=== PATIENT | male | born 1980 | race Caucasian/White ===

== ENCOUNTER 2017-11-07 18:35 | Emergency (ER) | payer BC ==
[2017-11-07] MEDS ORDERED: Lidocaine/EPINEPHrine/Tetracaine Soln 1 ML TOP ONE (18:50)
--- NOTE | 2017-11-07 19:08 | EDM.PDOC ---
ED HPI GENERAL MEDICAL PROBLEM - General Chief Complaint: Laceration Stated Complaint: HIT HEAD Time Seen by Provider: 11/07/17 18:50 Source of Information: Reports: Patient History Limitations: Reports: No Limitations - History of Present Illness INITIAL COMMENTS - FREE TEXT/NARRATIVE: HISTORY AND PHYSICAL: History of present illness: Patient is a 37-year-old male who presents to the emergency room today with complaints of a laceration to the top of his head after he states he was hanging some cabinets when they came loose, hitting him on the top of the head. He does have approximately 3 cm laceration to the top of the head in the hairline. He denies any loss of consciousness, change in vision, nausea, vomiting. Negative for any fever, chills, abdominal pain. He denies any neck pain, extremity pain. Does have some musculoskeletal skeletal tenderness to the left trapezius muscle. Review of systems: As per history of present illness and below otherwise all systems reviewed and negative. Past medical history: As per history of present illness and as reviewed below otherwise noncontributory. Surgical history: As per history of present illness and as reviewed below otherwise noncontributory. Social history: No reported history of drug or alcohol abuse. Family history: As per history of present illness and as reviewed below otherwise noncontributory. Physical exam: HEENT: 3 cm semi-superficial laceration to top of scalp (in hairline), non- gaping normocephalic, pupils reactive, negative for conjunctival pallor or scleral icterus, mucous membranes moist, throat clear, neck supple, nontender, trachea midline. Lungs: Clear to auscultation, breath sounds equal bilaterally, chest nontender. Heart: S1S2, regular rate and rhythm Abdomen: Soft, nondistended, nontender. Negative for masses. Negative for costovertebral tenderness. Pelvis: Stable nontender. Genitourinary: Deferred. Rectal: Deferred. C-spine/Back: No pinpoint vertebral tenderness upon palpation. No crepitus, step -offs or obvious deformities. Muscular tension noted to the left trapezius muscle with mild tenderness. Patient is fully ambulatory without difficulty or deficits. No urinary or fecal incontinence. Denies any numbness or tingling to upper or lower extremities. Extremities: Atraumatic, moves all extremities per self, negative for cords or calf pain. Neurovascular unremarkable. Neuro: Awake, alert, oriented. Cranial nerves II through XII unremarkable. Cerebellum unremarkable. Motor and sensory unremarkable throughout. Exam nonfocal. Tdap is UTD. Declines any imaging at this time as he had no LOC and no pain with palpation. Area was cleansed with chlorhexidine and irrigated with wound wash. LET gel applied to the scalp and allowed to sit for 15 minutes. #2 mily applied to laceration. Diagnostics: [] Therapeutics: LET gel, Staple Impression: Head injury Muslce strain, left shoulder Laceration Plan: 1. Please have the mily removed in 10-14 days. Monitor for signs of infection. Keep the area clean and dry. Showering is fine and wash your hair as normal. 2. Tylenol and or ibuprofen as needed for pain management. Flexeril has been prescribed for muscular spasm/strain. 3. Please follow-up with your primary care provider in the next couple days. Return to the ED as needed and as discussed. Definitive disposition and diagnosis as appropriate pending reevaluation and review of above. Onset: Today Duration: Minutes: Location: Reports: Head Left Head Pain Score (Numeric/FACES): 7 - Related Data Allergies Allergy/AdvReac Type Severity Reaction Status Date / Time No Known Allergies Allergy Verified 11/07/17 18:43 Home Meds: Home Meds . [No Known Home Meds] 11/07/17 [History] Past Medical History HEENT History: Reports: None Cardiovascular History: Reports: None Respiratory History: Reports: None Gastrointestinal History: Reports: None Genitourinary History: Reports: None Neurological History: Reports: None Psychiatric History: Reports: None Endocrine/Metabolic History: Reports: None Hematologic History: Reports: None Immunologic History: Reports: None Oncologic (Cancer) History: Reports: None Dermatologic History: Reports: None - Infectious Disease History Infectious Disease History: Reports: None - Past Surgical History Head Surgeries/Procedures: Reports: None Male Surgical History: Reports: None Musculoskeletal Surgical History: Reports: Arthroscopic Knee Social & Family History - Tobacco Use Smoking Status *Q: Never Smoker Years of Tobacco use: 10 Second Hand Smoke Exposure: No - Caffeine Use Caffeine Use: Reports: Coffee - Alcohol Use Days Per Week of Alcohol Use: 0 - Recreational Drug Use Recreational Drug Use: No Drug Use in Last 12 Months: No ED ROS GENERAL - Review of Systems Review Of Systems: ROS reveals no pertinent complaints other than HPI. ED EXAM, SKIN/RASH Exam: See Below (See dictation) Course - Vital Signs Last Recorded V/S: Last Vital Signs Temp 97.8 F 11/07/17 18:38 Pulse 68 11/07/17 18:38 Resp 18 11/07/17 18:38 BP 146/100 H 11/07/17 18:38 Pulse Ox 98 11/07/17 18:38 - Orders/Labs/Meds Meds: Medications Discontinued Medications Generic Name Dose Route Start Last Admin Trade Name Kiki PRN Reason Stop Dose Admin Lidocaine/Tetracaine 1 ml 11/07/17 18:50 11/07/17 18:57 Let Soln TOP 11/07/17 18:51 1 ml ONETIME ONE Administration Departure - Departure Time of Disposition: 19:26 Disposition: Home, Self-Care 01 Clinical Impression: Laceration, Muscle strain Head injury Qualifiers: Encounter type: initial encounter Qualified Code(s): S09.90XA - Unspecified injury of head, initial encounter - Discharge Information Instructions: Muscle Strain, [id number], Laceration Care, Adult, [id number] Referrals: Rajesh Lagos MD [Primary Care Provider] - Forms: ED Department Discharge Additional Instructions: My general discharge The following information is given to patients seen in the emergency department who are being discharged to home. This information is to outline your options for follow-up care. We provide all patients seen in our emergency department with a follow-up referral. The need for follow-up, as well as the timing and circumstances, are variable depending upon the specifics of your emergency department visit. If you don't have a primary care physician on staff, we will provide you with a referral. We always advise you to contact your personal physician following an emergency department visit to inform them of the circumstance of the visit and for follow-up with them and/or the need for any referrals to a consulting specialist. The emergency department will also refer you to a specialist when appropriate. This referral assures that you have the opportunity for follow-up care with a specialist. All of these measure are taken in an effort to provide you with optimal care, which includes your follow-up. Under all circumstances we always encourage you to contact your private physician who remains a resource for coordinating your care. When calling for follow-up care, please make the office aware that this follow-up is from your recent emergency room visit. If for any reason you are refused follow-up, please contact the [facility] Emergency Department at and asked to speak to the emergency department charge nurse. [facility] [address] [place] [id number] 1. Please have the mily removed in 10-14 days. Monitor for signs of infection. Keep the area clean and dry. Showering is fine and wash your hair as normal. 2. Tylenol and or ibuprofen as needed for pain management. Flexeril has been prescribed for muscular spasm/strain. 3. Please follow-up with your primary care provider in the next couple days. Return to the ED as needed and as discussed.
[2017-11-07 20:13] VITALS: BP 136/96
== END 2017-11-07 19:50 | disposition home or self-care (01) ==
LOC: MW.ED 18:35
DX: S01.01XA Laceration without foreign body of scalp, initial encounter (principal); S09.90XA Unspecified injury of head, initial encounter; S46.912A Strain of unspecified muscle, fascia and tendon at shoulder and upper arm level, left arm, initial encounter; W22.8XXA Striking against or struck by other objects, initial encounter
CPT/HCPCS: 12002; 99282; 99283

== ENCOUNTER 2017-11-16 14:46 | Emergency (ER) | payer BC ==
[2017-11-16 15:58] VITALS: BP 129/82
== END 2017-11-16 14:55 | disposition home or self-care (01) ==
LOC: MW.ED 14:46
DX: Z53.21 Procedure and treatment not carried out due to patient leaving prior to being seen by health care provider (principal)

== ENCOUNTER 2018-05-31 06:52 | Day surgery (SDC) | payer BC ==
[~2018-05-31 06:52] MED LIST: Lactated Ringers 1,000 ML IV SCH; Lidocaine 2% 5 ML SDV ONE; Midazolam 1 MG/ML 2 ML SDV ONE; Ondansetron 4 MG/2 ML SDV ONE; Propofol 200 MG/20 ML SDV ONE; fentaNYL 250 MCG/5 ML SDV ONE
[2018-05-31] MEDS ORDERED: Sodium Chloride 0.9% 10 ML Syringe FLUSH PRN (07:04)
[2018-05-31] MEDS ORDERED: Sodium Chloride 0.9% 2.5 ML Syringe FLUSH PRN (07:04)
--- NOTE | 2018-05-31 07:12 | PCM.PREANE ---
Preanesthetic Assessment - Anesthesia/Transfusion/Family Hx Anesthesia History: Prior Anesthesia Without Reaction Family History of Anesthesia Reaction: No Transfusion History: No Prior Transfusion(s) - Review of Systems General: No Symptoms Pulmonary: No Symptoms Cardiovascular: No Symptoms Gastrointestinal: No Symptoms Neurological: No Symptoms Other: Reports: None - Physical Assessment Height: 5 ft 7 in Weight: 77.111 kg ASA Class: 2 Mental Status: Alert & Oriented x3 Airway Class: Mallampati = 2 Dentition: Reports: Normal Dentition Thyro-Mental Finger Breadths: 3 Mouth Opening Finger Breadths: 3 ROM/Head Extension: Full Lungs: Clear to Auscultation, Normal Respiratory Effort Cardiovascular: Regular Rate, Regular Rhythm - Allergies Allergies/Adverse Reactions: Allergies Allergy/AdvReac Type Severity Reaction Status Date / Time No Known Allergies Allergy Verified 05/28/18 08:09 - Acknowledgements Anesthesia Type Planned: General Anesthesia Pt an Appropriate Candidate for the Planned Anesthesia: Yes Alternatives and Risks of Anesthesia Discussed w Pt/Guardian: Yes Pt/Guardian Understands and Agrees with Anesthesia Plan: Yes PreAnesthesia Questionnaire HEENT History: Reports: Other (See Below) Other HEENT History: wears glasses Cardiovascular History: Reports: Hypertension Respiratory History: Reports: Other (See Below) (Smoker) Gastrointestinal History: Reports: None Genitourinary History: Reports: None Musculoskeletal History: Reports: Other (See Below) (Lt and Rt Knee Pain) Neurological History: Reports: None Psychiatric History: Reports: None Endocrine/Metabolic History: Reports: None Hematologic History: Reports: None Immunologic History: Reports: None Oncologic (Cancer) History: Reports: None Dermatologic History: Reports: None - Infectious Disease History Infectious Disease History: Reports: None - Past Surgical History Head Surgeries/Procedures: Reports: None HEENT Surgical History: Reports: Tonsillectomy Male Surgical History: Reports: None Musculoskeletal Surgical History: Reports: Arthroscopic Knee (Rt knee and Lt Knee) Other Musculoskeletal Surgeries/Procedures:: rt knee scope x3, left knee scope x2 - SUBSTANCE USE Smoking Status *Q: Current Some Day Smoker Tobacco Use Within Last Twelve Months: Cigarettes, Cigars Recreational Drug Use History: No - HOME MEDS Home Medications: Home Meds Naproxen Sodium [Aleve] 1 tab PO ASDIRECTED PRN 05/28/18 [History] - CURRENT (IN HOUSE) MEDS Current Meds: Current Medications Hydrocodone Bitart/Acetaminophen (Brisbin 325-5 Mg) 1 - 2 tab PO Q4H PRN PRN Reason: Pain Fentanyl (Sublimaze) 50 mcg IVPUSH Q5M PRN PRN Reason: Pain (severe 7-10) Stop: 06/01/18 07:04 Cefazolin Sodium/Dextrose 1 gm (/ Premix) 50 mls @ 100 mls/hr IV ONCALL FANY Lactated Ringer's (Ringers, Lactated) 1,000 mls @ 100 mls/hr IV ASDIRECTED FANY Last Admin: 05/31/18 07:08 Dose: 100 mls/hr Sodium Chloride (Saline Flush) 10 ml FLUSH ASDIRECTED PRN PRN Reason: Keep Vein Open Sodium Chloride (Saline Flush) 2.5 ml FLUSH ASDIRECTED PRN PRN Reason: Keep Vein Open Discontinued Medications Fentanyl (Sublimaze) Confirm Administered Dose 250 mcg .ROUTE .STK-MED ONE Stop: 05/31/18 06:45 Lidocaine (Xylocaine-Mpf 2%) Confirm Administered Dose 5 ml .ROUTE .STK-MED ONE Stop: 05/31/18 06:44 Midazolam HCl (Versed 1 Mg/Ml) Confirm Administered Dose 2 mg .ROUTE .STK-MED ONE Stop: 05/31/18 06:45 Ondansetron HCl (Zofran) Confirm Administered Dose 4 mg .ROUTE .STK-MED ONE Stop: 05/31/18 06:44 Propofol (Diprivan 20 Ml) Confirm Administered Dose 200 mg .ROUTE .STK-MED ONE Stop: 05/31/18 06:44
[2018-05-31] MEDS ORDERED: Lidocaine 1% 20 ML MDV ONE (07:38)
[2018-05-31] MEDS ORDERED: Acetaminophen/HYDROcodone 325-5 MG Tab PO PRN (08:00)
[2018-05-31] MEDS ORDERED: ceFAZolin 1 GM in Premix Bag 1 BAG IV SCH (08:00)
[2018-05-31] MEDS ORDERED: Sodium Chloride 0.9% 20 ML ONE (08:15)
[2018-05-31] MEDS ORDERED: ceFAZolin 1 GM Vial ONE (08:15)
[2018-05-31] MEDS ORDERED: Ketorolac 30 MG/ML SDV ONE (08:15)
--- NOTE | 2018-05-31 08:39 | PCM.OPNOTE ---
- General Post-Op/Procedure Note Date of Surgery/Procedure: 05/31/18 Operative Procedure(s): Left knee arthroscopy with partial medial menisectomy Pre Op Diagnosis: L knee medial meniscus tear Post-Op Diagnosis: L knee medial meniscus tear Anesthesia Technique: General LMA Primary Surgeon: Cynthia Lagos Broom Handle Dipper: Bouchra Weber in mLs: 5 Condition: Good Free Text/Narrative:: tt=11 minutes Brief history: Patient is a 37-year-old male who was had complaint of increasing left knee pain. He did have an MRI which did show a tear of the medial meniscus. Due to his lack of response to conservative treatment, I did recommend surgical intervention. Risks and goals of procedure were discussed with the patient her document preoperatively. He agreed to proceed. Description of procedure: Patient was properly identified and brought to the operating room. He was transferred from the lower [facility] and placed on operating table in a supine position. General anesthesia was administered. After adequate anesthesia was obtained, a well-padded tourniquet was applied to left lower extremity. The left lower extremities and prepped in standard fashion using ChloraPrep solution. He was then sterilely draped. A timeout was performed to ensure correct site and procedure. Preoperative antibiotics were given. The surgical site had been marked preoperatively. An Esmarch was used to exsanguinate the left lower extremity and the tourniquet was inflated to 250 mmHg. A lateral portal arthrotomy was established. Blunt trocar and cannula were introduced into the suprapatellar space. Camera, in flowl, and out flow were assembled. No significant synovitis was noted. The patellofemoral joint was visualized. Mild grade 1 chondromalacia was noted along the inferior portion of the patella. The patella appeared to track centrally. An extended on the lateral and medial gutter. No loose bodies were identified. I then entered the medial compartment. A medial portal arthrotomy was established. A blunt probe was inserted. The meniscus was probed. He was found to have an unstable tear along the posterior horn. This was resected with a combination of biters and jericho. It was again probed and the remainder was found to be stable. Only a thin rim remained along the posterior medial discuss. The joint surfaces showed mild grade 1 to grade 2 chondromalacia along the medial tibial plateau. No degenerative changes were noted on the medial femoral condyle. Then entered the notch. Both ACL and PCL were visualized and probed and found to be intact. I then entered the lateral compartment. Minor degenerative fraying was noted along the central portion of the meniscus. It was probed and found to be stable. He did have a defect nearly full-thickness fissure along the central portion of the lateral tibial plateau. This was probed and no unstable cartilage was noted. No degenerative changes were noted along the lateral femoral condyle. Instruments were then removed from the knee. The portal sites were closed with 3 -0 nylon. 1% lidocaine was injected along the portal tracts. Xeroform gauze was placed over the wound and a bulky dressing was applied. Tourniquet was deflated. He was awakened from his anesthetic and transferred back to the operating cart. He is brought to recovery room in stable condition. All needle and sponge counts were correct.
[2018-05-31] MEDS: fentaNYL 100 MCG/2 ML SDV IVPUSH PRN ×2 (08:45→08:50)
--- NOTE | 2018-05-31 08:55 | PCM.POSTAN ---
POST ANESTHESIA ASSESSMENT - MENTAL STATUS Mental Status: Alert, Oriented - RESPIRATORY Respiratory Status: Respiratory Rate WNL, Airway Patent, O2 Saturation Stable - CARDIOVASCULAR CV Status: Pulse Rate WNL, Blood Pressure Stable - GASTROINTESTINAL GI Status: No Symptoms - PAIN Pain Score: 5 - POST OP HYDRATION Hydration Status: Adequate & Stable
[2018-05-31] MEDS ORDERED: Nalbuphine 10 MG/ML 10 ML MDV ONE (09:29)
[2018-05-31] MEDS ORDERED: Nalbuphine 10 MG/1 ML Vial IVPUSH ONE (09:35)
--- NOTE | 2018-05-31 09:52 | PCM48HPAN ---
Post Anesthesia Note - EVALUATION WITHIN 48HRS OF ANESTHETIC Vital Signs in Normal Range: Yes Patient Participated in Evaluation: Yes Respiratory Function Stable: Yes Airway Patent: Yes Cardiovascular Function Stable: Yes Hydration Status Stable: Yes Pain Control Satisfactory: Yes Nausea and Vomiting Control Satisfactory: Yes Mental Status Recovered: Yes Resp Rate: 14
[2018-05-31 11:21] VITALS: BP 128/87
== END 2018-05-31 10:40 | disposition home or self-care (01) ==
LOC: MW.SDS 06:52
PROVIDERS: ATTEND Orthopaedic Surgery
DX: S83.241A Other tear of medial meniscus, current injury, right knee, initial encounter (principal); M94.262 Chondromalacia, left knee; F17.210 Nicotine dependence, cigarettes, uncomplicated; I10 Essential (primary) hypertension; X58.XXXA Exposure to other specified factors, initial encounter; Z79.899 Other long term (current) drug therapy
CPT/HCPCS: 29881; A9270; J0690; J1885; J2250; J2300; J2405; J2704; J3010; J7120; 01400